=== PATIENT | male | born 1980 | race Caucasian/White ===

== ENCOUNTER 2023-10-14 17:36 | Observation (INO) ==
--- NOTE | 2023-10-14 18:01 | ED.PDOC ---
General ED Provider: Dr. LAURIE MALHOTRA MD Chief Complaint: Abdominal Pain Stated Complaint: Patient presents to ER from home accompanied by his complaining of acute right upper quadrant pain. Reports onset was yesterday and has been gradually worsening. States last meal was a cheesecake at approximately 4 PM today. Describes pain as intermittent between dull and sharp starting at right upper quadrant and then radiating down side. Denies any urinary symptoms. Denies any fever, chills, nausea, vomiting, diarrhea. No other complaints. Time Seen by Provider: 10/14/23 17:51 Mode of Arrival: Walk-In Information Source: Patient Exam Limitations: No limitations Nursing and Triage Documentation Reviewed and Agree: Yes What is Opioid Naive?: *Opioid Naive implies the patient is not already taking opioids or not chronically receiving opioids on a daily basis. *PRN dosing is not "usually" associated with tolerance. *Patients are at higher risk of over-sedation and aspiration. What is Opioid Tolerant?: *Opioid Tolerance implies less than the expected response to an opioid. *Acquired tolerance is defined by the patient taking 60mg of oral morphine daily (or equianalgesic dose of another opioid) for 1 week or more. *Often associated with chronic pain. *May take more than usual dose to achieve desired pain control. Review of Systems Review Of Systems Constitutional: Reports No symptoms All Other Systems: Reviewed and Negative (Except for those listed in the HPI.) FOR[facility]LY [facility] Medical History (Updated 10/14/23 @ 23:25 by KATHLEEN SHORE RN) No known health problems Z78.9 - Other specified health status (ICD-10) Family History Other No known health problems Social History (Updated 10/14/23 @ 23:29 by KATHLEEN SHORE RN) Smoking and tobacco status: Never smoker Alcohol intake: never Substance use type: does not use Special chelo needs: No Adopted: No Caregiver/support person: No Foster care: No Household members: spouse Housing: house Marital status: M Lives independently: Yes Daycare: no daycare Highest education level completed: high school graduate Financial difficulty paying for basics: not very hard intermediate: No Current occupational status: employed Current gender identity: male Seatbelt use: always Current diet type/program: regular Surgical History (Updated 10/14/23 @ 23:25 by KATHLEEN SHORE RN) No history of previous surgery Physical Exam Physical Exam Appearance: Reports Ill-appearing, No pain distress and Well-nourished Ill-appearing: Mild Pain Distress: Mild Eyes: Reports LOYDA and EOMI ENT: Reports Ears normal, Nose normal and Oropharynx normal Neck: Supple Respiratory: Reports Airway patent, Breath sounds clear, Breath sounds equal and Respirations nonlabored Cardiovascular: Reports RRR, Pulses normal, No rub and No murmur GI/: Reports Soft, No masses, Bowel sounds normal, No Organomegaly and Tender (Tenderness to superficial palpation of RUQ. +Crow's. No guarding or rebound tenderness.) Musculoskeletal: Reports Normal strength and ROM intact Skin: Reports Warm, Dry and Normal color Neurological: Reports Sensation intact, Motor intact, Alert and Oriented Psychiatric: Reports Affect appropriate and Mood appropriate Interpretation EKG Interpretation EKG Interpretation By: ED Physician Time of EKG #1: 18:22 Rate: Tachy Rhythm: Sinus Ectopy: None [place]: NL ST Segment: Normal Interpretation: Sinus tachycardia. Course Course 10/14/23 18:00 10/14/23 18:00 Orders, Labs, Meds: Lab Review 10/14/23 10/14/23 10/14/23 18:00 19:40 20:18 WBC 14.45 H RBC 5.79 Hgb 16.7 Hct 48.5 MCV 83.8 MCH 28.8 MCHC 34.4 RDW Coeff of Romana 12.9 Plt Count 293 Immature Gran % (Auto) 0.3 Neut % (Auto) 72.2 Lymph % (Auto) 18.0 Price % (Auto) 8.9 Eos % (Auto) 0.3 Baso % (Auto) 0.3 Neut # (Auto) 10.4 H Lymph # (Auto) 2.6 Price # (Auto) 1.3 Eos # (Auto) 0.0 Baso # (Auto) 0.0 Immature Gran # (Auto) 0.1 Sodium 137.8 Potassium 3.83 Chloride 103.9 Carbon Dioxide 24.6 Anion Gap 13.13 BUN 14.5 Creatinine 1.05 Estimated GFR (MDRD) 77.00 BUN/Creatinine Ratio 13.80 Glucose 141.1 H Lactic Acid 1.74 Calcium 9.47 Total Bilirubin 0.87 AST 46.1 ALT 59.6 H Alkaline Phosphatase 86.4 Troponin I < 0.012 Total Protein 8.00 Albumin 4.86 Globulin 3.14 Albumin/Globulin Ratio 1.54 Triglycerides Cholesterol LDL Cholesterol, Calc VLDL Cholesterol HDL Cholesterol Cholesterol/HDL Ratio Lipase 808.2 H SARS CoV-2 RNA Rapid YOANDY Negative 10/14/23 20:45 WBC RBC Hgb Hct MCV MCH MCHC RDW Coeff of Romana Plt Count Immature Gran % (Auto) Neut % (Auto) Lymph % (Auto) Price % (Auto) Eos % (Auto) Baso % (Auto) Neut # (Auto) Lymph # (Auto) Price # (Auto) Eos # (Auto) Baso # (Auto) Immature Gran # (Auto) Sodium Potassium Chloride Carbon Dioxide Anion Gap BUN Creatinine Estimated GFR (MDRD) BUN/Creatinine Ratio Glucose Lactic Acid Calcium Total Bilirubin AST ALT Alkaline Phosphatase Troponin I Total Protein Albumin Globulin Albumin/Globulin Ratio Triglycerides 176.4 H Cholesterol 224.3 H LDL Cholesterol, Calc 145 VLDL Cholesterol 35 H HDL Cholesterol 43.7 Cholesterol/HDL Ratio 5.1 Lipase SARS CoV-2 RNA Rapid YOANDY Orders Category Date Time Status ADMIT OBSERVATION [PLACE PATIENT OBSERVATION] .TO ADMISSION 10/14/23 20:45 Active MEDSURG (MONITORED BED) EKG-(ED ONLY) Stat CARDIO 10/14/23 18:02 Completed ACTIVITY .Up ad Bonnie CARE 10/14/23 20:40 Active INTAKE & OUTPUT Q8HR CARE 10/14/23 20:40 Active NPO REMINDER: IMAGING ONCE CARE 10/14/23 18:19 Completed NPO REMINDER: IMAGING ONCE CARE 10/14/23 20:41 Active NPO REMINDER: LAB TEST ONCE CARE 10/14/23 20:41 Active PULSE OX [CONTINUOUS PULSE OX (NURSING)] PULSEOX CARE 10/14/23 17:51 Active TELEMETRY MONITORING TELE CARE 10/14/23 20:45 Active VITAL SIGNS Q4HR CARE 10/14/23 20:40 Active NOTHING BY MOUTH DIETARY 10/15/23 Breakfast Ordered Assembly Riveter [ED VENDING SUPERVISOR APPLIED] .ONCE EMERGENCY 10/14/23 17:51 Active BLOOD CULTURE (ED ONLY) Stat LAB 10/14/23 10:42 Received CBC W/ AUTO DIFF DAILY@0600 LAB 10/15/23 06:00 Ordered CBC W/ AUTO DIFF DAILY@0600 LAB 10/16/23 06:00 Ordered CBC W/ AUTO DIFF Stat LAB 10/14/23 18:00 Completed CMP [COMPREHENSIVE METABOLIC PANEL] Stat LAB 10/14/23 18:00 Completed COMPREHENSIVE METABOLIC PANEL DAILY@0600 LAB 10/15/23 06:00 Ordered COMPREHENSIVE METABOLIC PANEL DAILY@0600 LAB 10/16/23 06:00 Ordered LACTIC ACID Stat LAB 10/14/23 18:00 Completed LIPASE DAILY@0600 LAB 10/15/23 06:00 Ordered LIPASE DAILY@0600 LAB 10/16/23 06:00 Ordered LIPASE Stat LAB 10/14/23 19:40 Completed LIPID PANEL Stat LAB 10/14/23 20:45 Completed SARS COV-2 RNA RAPID YOANDY Stat LAB 10/14/23 20:18 Completed TROPONIN I Stat LAB 10/14/23 18:00 Completed URINALYSIS C & S IF INDICATED Stat LAB 10/14/23 22:00 Completed Acetaminophen Meds 10/14/23 17:51 Discontinued 1,000 mg in 100 ml IV ONCE Acetaminophen Meds 10/14/23 20:40 Active 1,000 mg in 100 ml IV Q6HR Morphine Sulfate [Morphine 2 mg/ml Syringe] Meds 10/14/23 20:40 Active 2 mg IVP Q4HR PRN Ondansetron HCl/Pf [Zofran 4 mg/2 ml] Meds 10/14/23 20:40 Active 4 mg IVP Q6H PRN Ringers Lactated Solution [Lactated Ringers] 1,000 ml Meds 10/14/23 21:00 Active IV 250 mls/hr Sodium Chloride 0.9% [Sodium Chloride] 1,000 ml Meds 10/14/23 17:51 Discontinued IV BOLUS Sodium Chloride 0.9% [Sodium Chloride] 1,000 ml Meds 10/14/23 20:11 Discontinued IV BOLUS CHEST, 1V AP ONLY Stat RADS 10/14/23 18:[address] ABDOMEN/PELVIS W CONTRAST Stat RADS 10/14/23 18:19 Completed US ABDOMEN RT UPPER QUAD [U/S ABDOMEN RT UPPER QUAD] RADS 10/15/23 06:00 Ordered Stat Medications Generic Name Dose Route Start Last Admin Trade Name Freq PRN Reason Stop Dose Admin Acetaminophen 1,000 mg in 100 mls @ 400 mls/hr 10/14/23 20:40 Acetaminophen IV Q6HR PRN Pain Lactated Ringer's 1,000 mls @ 250 mls/hr 10/14/23 21:00 10/14/23 22:35 Lactated Ringers IV 250 mls/hr .Q4H VICTOR HUGO Administration Morphine Sulfate 2 mg 10/14/23 20:40 10/14/23 23:21 Morphine Sulfate 2 Mg/Ml Syringe IVP 2 mg Q4HR PRN Administration MODERATE PAIN Ondansetron HCl 4 mg 10/14/23 20:40 Ondansetron Hcl/Pf 4 Mg/2 Ml Sdv IVP Q6H PRN Nausea / Vomiting Discontinued Medications Generic Name Dose Route Start Last Admin Trade Name Freq PRN Reason Stop Dose Admin Sodium Chloride 1,000 mls @ 1,000 mls/hr 10/14/23 17:51 10/14/23 22:13 Sodium Chloride IV 10/14/23 18:50 Infused BOLUS STA Infusion Acetaminophen 1,000 mg in 100 mls @ 400 mls/hr 10/14/23 17:51 10/14/23 18:14 Acetaminophen IV 10/14/23 18:05 400 mls/hr ONCE STA Administration Sodium Chloride 1,000 mls @ 1,000 mls/hr 10/14/23 20:11 10/14/23 22:26 Sodium Chloride IV 10/14/23 21:10 Infused [place] [address] Diagnostic Imaging Diagnostic Imaging Report : [id number] Signed Patient: ANJELICA VAZQUEZ Acct:[id number] Medical Record: [id number] : 1980 Loc: ED Room/Bed: Age/Sex: 42 / M ADM Status: REG ER Date of Service: 10/14/23 Ordering Physician: LAURIE MALHOTRA MD Procedure(s): CHEST, 1V AP ONLY Report Number(s): [id number] Accession Number(s): [id number] cc: LAURIE MALHOTRA MD EXAM: CHEST RADIOGRAPH TECHNIQUE: Single frontal chest radiograph. HISTORY: Right-sided pain COMPARISON: 10/15/2022 FINDINGS: Lungs show no consolidation, pleural effusion or pneumothorax. The left costophrenic angle - show a small nodular opacity which is not appreciated previously. Cardiomediastinal silhouette and pulmonary vessels are within normal limits. Upper abdomen is unremarkable. No acute bony abnormality IMPRESSION: 1. No acute cardiopulmonary disease. 2. A faint nodular opacity seen in the left costophrenic angle region of the lung. Not appreciated previously. Suggest follow-up non-emergent CT scan of chest for further evaluation. Dictated By: POOJA LARA MD Signed By: POOJA LARA MD Dictated Date/Time: 10/14/231824 Transcribed Date/Time: 10/14/231824 Signed Date/Time: 10/14/23 [address] [place] [address] Report : [id number] Signed Patient: ANJELICA VAZQUEZ Acct:[id number] Medical Record: [id number] : 1980 Loc: ED Room/Bed: Age/Sex: 42 / M ADM Status: REG ER Date of Service: 10/14/23 Ordering Physician: LAURIE MALHOTRA MD Procedure(s): CT ABDOMEN/PELVIS W CONTRAST Report Number(s): [id number] Accession Number(s): [id number] cc: LAURIE MALHOTRA MD EXAM: CT OF THE ABDOMEN AND PELVIS WITH CONTRAST History: Right upper quadrant pain Technique: [address] of the abdomen and pelvis following intravenous contrast FINDINGS: The lung bases are clear. No significant liver abnormality. Normal spleen and adrenal glands. Annular pancreas configuration. The stomach and hiatus are unremarkable.The gallbladder appears normal. Kidneys and proximal collecting system are unremarkable. The appendix is normal. Bowel loops demonstrate normal caliber. Trace fluid and stranding in the anterior pararenal space. Vascular structures appear normal. Pelvic genitourinary structures appear normal. Pelvic bowel loops are unremarkable. No inflammatory change in the pelvic fat. No acute abnormality of the abdominal or pelvic skeleton. Impression: 1. Mild inflammatory stranding and retroperitoneal fluid on the right. Suspect origin from the pancreatic head. 2. 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 No evidence of duodenal obstruction. 3. The gallbladder and pericholecystic fat appear normal by CT. All CT scans are performed using dose optimization techniques as appropriate to the performed exam and include at least one of the following: Automated exposure control, adjustment of the mA and/or kV according to size, and the use of iterative reconstruction technique. Dictated By: QUENTIN GOLD Signed By: QUENTIN GOLD Dictated Date/Time: 10/14/231923 Transcribed Date/Time: 10/14/231923 Signed Date/Time: 10/14/231942 Vital Signs: Temp Pulse Resp BP Pulse Ox 10/14/23 17:47 97 F L 115 H 16 128/93 H 96 20:36 - Spoke with on-call hospitalist (L[facility]) regarding patient status and current workup and management for pancreatitis. WBC 14.45H, Lipase 808H. CT a/p remarkable for mild inflammatory stranding and retroperitoneal fluid on right; suspected pancreatic source. Patient with mild improvement of right upper quadrant pain after receiving 1L NS bolus x2, IV acetaminophen. Agreed to obs admission for further workup-mgmt. Discharge Plan Discharge Patient Disposition: PLACED OBSERVATION Discharge Problem: Pancreatitis, acute Did you review [place] [employer] for ALL controlled substances?: Not Applicable ED Provider: LAURIE MALHOTRA Condition: Good
[2023-10-14 18:05] LABS: BASOPHILS % (AUTO) 0.3 % (0.0-3.0); EOSINOPHILS % (AUTO) 0.3 % (0.0-7.0); HEMATOCRIT 48.5 % (42.0-52.0); HEMOGLOBIN 16.7 g/dl (14.0-18.0); IMMATURE GRANULOCYTE # (AUTO) 0.1 (0.0-1.0); IMMATURE GRANULOCYTE % (AUTO) 0.3 % (0.0-5.0); LYMPHOCYTES # (AUTO) 2.6 K/uL (0.60-3.4); MEAN CORPUSCULAR HEMOGLOBIN 28.8 pg (27.0-31.0); MEAN CORPUSCULAR HGB CONC 34.4 (31.8-35.4); MEAN CORPUSCULAR VOLUME 83.8 fl (80.0-94.0); MONOCYTES # (AUTO) 1.3 K/uL (0.4-2.0); MONOCYTES % (AUTO) 8.9 (0-10); NEUTROPHILS # (AUTO) 10.4 K/ul (2.0-6.9); NEUTROPHILS % (AUTO) 72.2 % (42.2-75.2); PLATELET COUNT 293 10^3/uL (140-440); RDW COEFFICIENT OF VARIATION 12.9 % (11.6-14.8); RED BLOOD COUNT 5.79 10^6/ul (4.70-6.10); WHITE BLOOD COUNT 14.45 K/ul (4.2-10.2)
[2023-10-14] MEDS: SODIUM CHLORIDE 1,000 ML IV STA ×2 (18:14→20:20)
[2023-10-14] MEDS: ACETAMINOPHEN 1,000 MG/100 ML BAG IV STA (18:14)
[2023-10-14 18:21] LABS: ALANINE AMINOTRANSFERASE 59.6 U/L (0-50); ALBUMIN 4.86 g/dL (3.5-5.0); ALKALINE PHOSPHATASE 86.4 U/L (38-126); ASPARTATE AMINO TRANSFERASE 46.1 U/L (17-59); BILIRUBIN,TOTAL 0.87 mg/dL (0.2-1.3); BLOOD UREA NITROGEN 14.5 mg/dL (9-20); CALCIUM 9.47 mg/dL (8.4-10.2); CARBON DIOXIDE 24.6 mmol/L (22-30.0); CHLORIDE 103.9 mmol/L (98-107); CREATININE 1.05 mg/dL (0.60-1.10); GLUCOSE 141.1 mg/dL (74-106); POTASSIUM 3.83 mmol/L (3.5-5.1); SODIUM 137.8 mmol/L (134.5-145)
--- NOTE | 2023-10-14 18:31 | DI ---
EXAM: CHEST RADIOGRAPH TECHNIQUE: Single frontal chest radiograph. HISTORY: Right-sided pain COMPARISON: 10/15/2022 FINDINGS: Lungs show no consolidation, pleural effusion or pneumothorax. The left costophrenic angle - show a small nodular opacity which is not appreciated previously. Cardiomediastinal silhouette and pulmona ry vessels are within normal limits. Upper abdomen is unremarkable. No acute bony abnormality IMPRESSION: 1. No acute cardiopulmonary disease. 2. A faint nodular opacity seen in the left costophrenic angle region of the lung. Not appreciated previously. Suggest follow-up non-emergent CT scan of chest for further evaluation.
--- NOTE | 2023-10-14 19:43 | CT ---
EXAM: CT OF THE ABDOMEN AND PELVIS WITH CONTRAST History: Right upper quadrant pain Technique: [address] of the abdomen and pelvis following intravenous contrast FINDINGS: The lung bases are clear. No significant liver abnormality. Normal spleen and adrenal gl ands. Annular pancreas configuration. The stomach and hiatus are unremarkable.The gallbladder appe ars normal. Kidneys and proximal collecting system are unremarkable. The appendix is normal. Bowel loops demonstrate normal caliber. Trace fluid and stranding in the anterior pararenal space. Vascu lar structures appear normal. Pelvic genitourinary structures appear normal. Pelvic bowel loops are unremarkable. No inflammatory change in the pelvic fat. No acute abnormality of the abdominal or pelvic skeleton. Impression: 1. Mild inflammatory stranding and retroperitoneal fluid on the right. Suspect origin from the bello creatic head. 2. 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 No evidence of duodenal obstruction. 3. The gallbladder and pericholecystic fat appear normal by CT. All CT scans are performed using dose optimization techniques as appropriate to the performed exam an d include at least one of the following: Automated exposure control, adjustment of the mA and/or kV according t o size, and the use of iterative reconstruction technique.
[2023-10-14 20:39] LABS: SARS COV-2 RNA RAPID NAAT NEGATIVE (NEGATIVE)
[2023-10-14] MEDS ORDERED: ZOFRAN 4 MG/2 ML IVP PRN (20:40)
[2023-10-14] MEDS ORDERED: ACETAMINOPHEN 1,000 MG/100 ML BAG IV PRN (20:40)
[2023-10-14 20:58] LABS: CHOLESTEROL 224.3 mg/dL (0-200); HDL CHOLESTEROL 43.7 mg/dL (35-60); TRIGLYCERIDES 176.4 mg/dL (0-150)
[2023-10-14 22:05] LABS: BILIRUBIN,URINE Negative (NEGATIVE); CLARITY,URINE Clear (CLEAR); COLOR,URINE Yellow (YELLOW); GLUCOSE, URINE (UA) Negative (NEGATIVE); KETONES,URINE Negative (NEGATIVE); LEUKOCYTE ESTERASE ,URINE Negative (NEGATIVE); NITRITE,URINE Negative (NEGATIVE); PH,URINE 7.5 (5-9); PROTEIN,URINE Negative (NEGATIVE); URINE, BLOOD Negative (NEGATIVE); UROBILINOGEN,URINE 0.2 (0.2)
[2023-10-14] MEDS: LACTATED RINGERS 1,000 ML IV SCH (22:35)
[2023-10-14 23:21] VITALS: BMI 32.1
[2023-10-14] MEDS: MORPHINE 2 MG/ML SYRINGE IVP PRN (23:21)
[2023-10-15 05:59] LABS: BASOPHILS % (AUTO) 0.2 % (0.0-3.0); EOSINOPHILS # (AUTO) 0.1 K/ul (0.0-0.7); EOSINOPHILS % (AUTO) 0.4 % (0.0-7.0); HEMATOCRIT 42.8 % (42.0-52.0); HEMOGLOBIN 14.5 g/dl (14.0-18.0); IMMATURE GRANULOCYTE # (AUTO) 0.1 (0.0-1.0); IMMATURE GRANULOCYTE % (AUTO) 0.3 % (0.0-5.0); LYMPHOCYTES # (AUTO) 2.2 K/uL (0.60-3.4); LYMPHOCYTES % (AUTO) 15.3 (10.0-50.0); MEAN CORPUSCULAR HEMOGLOBIN 28.5 pg (27.0-31.0); MEAN CORPUSCULAR HGB CONC 33.9 (31.8-35.4); MEAN CORPUSCULAR VOLUME 84.3 fl (80.0-94.0); MONOCYTES # (AUTO) 1.4 K/uL (0.4-2.0); MONOCYTES % (AUTO) 9.5 (0-10); NEUTROPHILS # (AUTO) 10.7 K/ul (2.0-6.9); NEUTROPHILS % (AUTO) 74.3 % (42.2-75.2); PLATELET COUNT 250 10^3/uL (140-440); RDW COEFFICIENT OF VARIATION 12.7 % (11.6-14.8); RED BLOOD COUNT 5.08 10^6/ul (4.70-6.10); WHITE BLOOD COUNT 14.38 K/ul (4.2-10.2)
[2023-10-15 06:08] LABS: ALBUMIN 4.23 g/dL (3.5-5.0); ALKALINE PHOSPHATASE 77.2 U/L (38-126); ASPARTATE AMINO TRANSFERASE 40.1 U/L (17-59); BILIRUBIN,TOTAL 1.06 mg/dL (0.2-1.3); BLOOD UREA NITROGEN 9.3 mg/dL (9-20); CALCIUM 8.58 mg/dL (8.4-10.2); CARBON DIOXIDE 26.2 mmol/L (22-30.0); CHLORIDE 104.2 mmol/L (98-107); CREATININE 0.79 mg/dL (0.60-1.10); GLUCOSE 130.3 mg/dL (74-106); LIPASE 563.6 U/L (23-300); POTASSIUM 4.24 mmol/L (3.5-5.1); SODIUM 136.2 mmol/L (134.5-145); TOTAL PROTEIN 7.03 g/dL (6.3-8.2)
--- NOTE | 2023-10-15 08:11 | US ---
EXAM: ULTRASOUND OF THE RIGHT UPPER QUADRANT (LIMITED ABDOMEN) HISTORY: Right upper quadrant abdominal pain. TECHNIQUE: Sonography of the right upper quadrant of the abdomen was performed. Color Doppler imagin g and spectral Doppler imaging of the portal vein was also performed. Images were obtained and store d in a permanent archive. COMPARISON: None. FINDINGS: Pancreas: Normal appearance. Liver: The liver measures 14.2 cm. No focal hepatic lesion. Main portal vein: Normal hepatopetal flow. Gallbladder: No cholelithiasis. No gallbladder wall thickening. Negative sonographic Crow's sign. Common bile duct measures mm. Aorta: Visualized portion without aneurysmal dilatation. IVC: Patent on color doppler. No abnormality on limited munguia scale image. Other: No ascites. Evaluation of the right kidney reveals no stones or hydronephrosis. IMPRESSION: 1. Normal right upper quadrant abdomen ultrasound.
[2023-10-15] MEDS ORDERED: TYLENOL #3 TAB PO ONE (10:18)
[2023-10-15] MEDS ORDERED: TYLENOL PO ONE (10:26)
[2023-10-15] MEDS: TYLENOL PO ONE (10:47)
--- NOTE | 2023-10-15 11:09 | PCM.SS ---
Provider Provider: KIKI SONG PA-C, [facility] Admission Date Admission Date: 10/14/23 Discharge Date Discharge Date: 10/15/23 Chief Complaint Reason For Visit: PANCREATITIS History of Present Illness History of Present Illness: Admitted 10/14/23 21:10, this 42 year old /WHITE/M with no significant pmhx presented to ER with RUQ abd pain since Wednesday of this week. He denies drinking, smoking, new medications. He can't associate it with fatty meals. He was noted in ER to have lipase >800, CT a/p showed signs of acute pancreatitis. It also mentioned possibility of annular pancreas variant. Pt states he does have GERD sometimes for which he takes otc prilosec, but otherwise denies symptoms. He was admitted to med surg for acute pancreatitis. The following day patient's lipase improved to 500. US RUQ negative. Pt only received IV morphine one time. He was hoping to eat. He was able to tolerate a d iet without difficulty. No n/v/d. Pain much improved. He felt comfortable with discharge to home. Discussed if symptoms persist, may need a surgical consultation to discuss the CT finding of possible annular pancreas variant. Also discussed a HIDA scan outpatient could be worth considering. [facility] Medical History No known health problems Z78.9 - Other specified health status (ICD-10) Surgical History No history of previous surgery Family History Other No known health problems Social History Smoking and tobacco status: Never smoker Alcohol intake: never Substance use type: does not use Special chelo needs: No Adopted: No Caregiver/support person: No Foster care: No Household members: spouse Housing: house Marital status: M Lives independently: Yes Daycare: no daycare Highest education level completed: high school graduate Financial difficulty paying for basics: not very hard longterm: No Current occupational status: employed Current gender identity: male Seatbelt use: always Current diet type/program: regular Medications Mecications: Medications at Discharge (Home Meds & RX) 1 [No Reported Medications] 10/14/23 Allergies Allergies Allergy/AdvReac Type Severity Reaction Status Date / Time No Known Allergies Allergy Verified 10/14/23 17:50 Review of Systems Constitutional: Denies Fever or Weakness Head: Reports Normocephalic and Atraumatic Cardiovascular: Denies Chest pain or Edema Respiratory: Denies Cough or Shortness of air Gastrointestinal: Reports Nausea and Abdominal pain; Denies Vomiting or Melena Genitourinary: Denies Dysuria Neurological: Denies Headache, Dizziness, Syncope or Weakness Physical Examination Appearance: Positive Well-appearing, Well-nourished, No Apparent Distress and Alert and Oriented x3 Head: Positive Normocephalic and Atraumatic Neck: Positive Supple and Trachea Midline Respiratory: Positive Breath Sounds Clear, Bilaterally and Respirations Nonlabored GI/: Positive Soft, Nontender, Bowel sounds normal and No Distention Extremities: Negative Edema Neurological: Positive Alert and Oriented Psychiatric: Positive Normal Judgement, Normal Insight, Affect Appropriate and Mood Appropriate Vital Signs (Last 4 Hours) Vital Signs Last 4 Hours: Vital Signs: Last 4 Hours 10/15/23 08:00 10/15/23 09:00 10/15/23 10:00 Temperature 98.2 F Temperature Source Temporal Artery Scan Pulse Rate 88 Respiratory Rate 16 Blood Pressure 132/95 H Blood Pressure Mean 107 Blood Pressure Location Left Arm Blood Pressure Position Sitting O2 Sat by Pulse Oximetry 96 Oxygen Delivery Method Room Air Room Air Room Air 10/15/23 10:00 Temperature Temperature Source Pulse Rate Respiratory Rate Blood Pressure Blood Pressure Mean Blood Pressure Location Blood Pressure Position O2 Sat by Pulse Oximetry Oxygen Delivery Method Room Air Labs This Visit Labs This Visit: Labs This Visit 10/14/23 10/14/23 10/14/23 18:00 19:40 20:18 WBC 14.45 H RBC 5.79 Hgb 16.7 Hct 48.5 MCV 83.8 MCH 28.8 MCHC 34.4 RDW Coeff of Romana 12.9 Plt Count 293 Immature Gran % (Auto) 0.3 Neut % (Auto) 72.2 Lymph % (Auto) 18.0 Tate % (Auto) 8.9 Eos % (Auto) 0.3 Baso % (Auto) 0.3 Neut # (Auto) 10.4 H Lymph # (Auto) 2.6 Tate # (Auto) 1.3 Eos # (Auto) 0.0 Baso # (Auto) 0.0 Immature Gran # (Auto) 0.1 Sodium 137.8 Potassium 3.83 Chloride 103.9 Carbon Dioxide 24.6 Anion Gap 13.13 BUN 14.5 Creatinine 1.05 Estimated GFR (MDRD) 77.00 BUN/Creatinine Ratio 13.80 Glucose 141.1 H Hemoglobin A1c Lactic Acid 1.74 Calcium 9.47 Total Bilirubin 0.87 AST 46.1 ALT 59.6 H Alkaline Phosphatase 86.4 Troponin I < 0.012 Total Protein 8.00 Albumin 4.86 Globulin 3.14 Albumin/Globulin Ratio 1.54 Triglycerides Cholesterol LDL Cholesterol, Calc VLDL Cholesterol HDL Cholesterol Cholesterol/HDL Ratio Lipase 808.2 H Urine Color Urine Clarity Urine pH Ur Specific [place] Urine Protein Urine Glucose (UA) Urine Ketones Urine Blood Urine Nitrite Urine Bilirubin Urine Urobilinogen Ur Leukocyte Esterase SARS CoV-2 RNA Rapid YOANDY Negative 10/14/23 10/14/23 10/15/23 20:45 22:00 05:47 WBC 14.38 H RBC 5.08 Hgb 14.5 Hct 42.8 MCV 84.3 MCH 28.5 MCHC 33.9 RDW Coeff of Romana 12.7 Plt Count 250 Immature Gran % (Auto) 0.3 Neut % (Auto) 74.3 Lymph % (Auto) 15.3 Tate % (Auto) 9.5 Eos % (Auto) 0.4 Baso % (Auto) 0.2 Neut # (Auto) 10.7 H Lymph # (Auto) 2.2 Tate # (Auto) 1.4 Eos # (Auto) 0.1 Baso # (Auto) 0.0 Immature Gran # (Auto) 0.1 Sodium 136.2 Potassium 4.24 Chloride 104.2 Carbon Dioxide 26.2 Anion Gap 10.04 BUN 9.3 Creatinine 0.79 Estimated GFR (MDRD) 107.00 BUN/Creatinine Ratio 11.77 Glucose 130.3 H Hemoglobin A1c 5.44 Lactic Acid Calcium 8.58 Total Bilirubin 1.06 AST 40.1 ALT 51.0 H Alkaline Phosphatase 77.2 Troponin I Total Protein 7.03 Albumin 4.23 Globulin 2.80 Albumin/Globulin Ratio 1.51 Triglycerides 176.4 H Cholesterol 224.3 H LDL Cholesterol, Calc 145 VLDL Cholesterol 35 H HDL Cholesterol 43.7 Cholesterol/HDL Ratio 5.1 Lipase 563.6 H Urine Color Yellow Urine Clarity Clear Urine pH 7.5 Ur Specific [place] 1.015 Urine Protein Negative Urine Glucose (UA) Negative Urine Ketones Negative Urine Blood Negative Urine Nitrite Negative Urine Bilirubin Negative Urine Urobilinogen 0.2 Ur Leukocyte Esterase Negative SARS CoV-2 RNA Rapid YOANDY Imaging Imaging: EXAM: CT OF THE ABDOMEN AND PELVIS WITH CONTRAST History: Right upper quadrant pain Technique: [address] of the abdomen and pelvis following intravenous contrast FINDINGS: The lung bases are clear. No significant liver abnormality. Normal spleen and adrenal glands. Annular pancreas configuration. The stomach and hiatus are unremarkable.The gallbladder appears normal. Kidneys and proximal collecting system are unremarkable. The appendix is normal. Bowel loops demonstrate normal caliber. Trace fluid and stranding in the anterior pararenal space. Vascular structures appear normal. Pelvic genitourinary structures appear normal. Pelvic bowel loops are unremarkable. No inflammatory change in the pelvic fat. No acute abnormality of the abdominal or pelvic skeleton. Impression: 1. Mild inflammatory stranding and retroperitoneal fluid on the right. Suspect origin from the pancreatic head. 2. 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 No evidence of duodenal obstruction. 3. The gallbladder and pericholecystic fat appear normal by CT. EXAM: ULTRASOUND OF THE RIGHT UPPER QUADRANT (LIMITED ABDOMEN) HISTORY: Right upper quadrant abdominal pain. TECHNIQUE: Sonography of the right upper quadrant of the abdomen was performed. Color Doppler imaging and spectral Doppler imaging of the portal vein was also performed. Images were obtained and stored in a permanent archive. COMPARISON: None. FINDINGS: Pancreas: Normal appearance. Liver: The liver measures 14.2 cm. No focal hepatic lesion. Main portal vein: Normal hepatopetal flow. Gallbladder: No cholelithiasis. No gallbladder wall thickening. Negative sonographic Crow's sign. Common bile duct measures mm. Aorta: Visualized portion without aneurysmal dilatation. IVC: Patent on color doppler. No abnormality on limited munguia scale image. Other: No ascites. Evaluation of the right kidney reveals no stones or hydronephrosis. IMPRESSION: 1. Normal right upper quadrant abdomen ultrasound. Review Review Statement: I have independently reviewed and interpreted the labs/EKGs/imaging that were ordered by the ER provider. I have reviewed all outside records that are available currently in our EMR including imaging/notes/labs from previous visits. Plan Reccomendations/Plan: 1. Acute pancreatitis, unknown etiology - CT findings and lipase support pancreatitis. No new medications, denies alcohol use, a1c normal. CT showed possible annular pancreas variant. Surgical consultation outpatient could be warranted. Lipase improving. Pain resolving. Patient's lipase improved to 500. US RUQ negative. Pt only received IV morphine one time. He was hoping to eat. He was able to tolerate a diet without difficulty. No n/v/d. Pain much improved. He felt comfortable with discharge to home. Discussed if symptoms persist, may need a surgical consultation to discuss the CT finding of possible annular pancreas variant. Also discussed a HIDA scan outpatient could be worth considering. Discharge diagnoses: 1. Acute pancreatitis, unknown etiology - resolving Additional Planning: Case discussed with ED Physician, Dr. Cordero. DVT Prophylaxis: Ambulation Advanced Care Plannin minutes spent discussing advance care planning. Admit to: Obs Discussed Plan of Care with Dr. Awais Kumari. Review With Patient Reviewed with Patient and Family: Patient and family have been counseled on condition and care plan and have no immediate questions. I have personally discussed and reviewed the patient's visit/current labs/imaging/decision making with Dr. Awais Kumari, my supervising attending. Total number of minutes spent with patient [85] min. More than 50% of the time spent with this patient was devoted to counseling and coordination of care. Time of Admission:10/14/23 21:10 Time of Discharge: 10/15/23 1000 Discharge Plan Discharge Discharge Orders: Discharge Patient (ONCE); Ordered 10/15/23 Ordered By: KIKI SONG Activity Restrictions/Additional Instructions: DISCHARGE HOME TODAY ACTIVITY TOLERATED YOU MAY RETURN TO WORK DIET: Progress as tolerated FOLLOW UP AT THE CLINIC ON WEDNESDAY, October AT 0945. YOU SHOULD ARRIVE AT LEAST 15 MIN. EARLY. YOU SHOULD FIND A PRIMARY CARE PROVIDER TO FOLLOW UP WITH YOUR DIAGNOSED PANCREATITIS. YOUR B/P SHOULD BE FOLLOWED WELL. CONSIDER SURGICAL CONSULT IF SYMPTOMS PERSIST DUE TO QUESTIONABLE CT FINDING REGARDING ANNULAR PANCREAS Instructions: Pancreatitis (DC) Care Plan Goals: Problem: Alteration in Comfort/Pain Goal: Manage pain at a tolerable level Instructions: Monitor character, location and intensity Express expectations of pain relief Pain medication as ordered Position for maximal comfort Pain management prior to activities Patient Disposition: HOME SELF-CARE Prescriptions: No Action No Reported Medications Did you review [place] [employer]IVER for ALL controlled substances?: Not Applicable Discussed opioids are addictive and Narcan is available by prescription or from pharmacy.: No Condition: Good Referrals: MELLY SANDOVAL APRN,[facility] [NURSE PRACTITIONER] - 10/21/23 9:45 am
[2023-10-15 14:20] VITALS: BP 137/90; PULSE 85; RESP 18; TEMP 98.9
== END 2023-10-15 14:45 | disposition home or self-care (01) ==
LOC: MEDSURG B 17:36 → ED 17:36 → MEDSURG B 22:44
PROVIDERS: ADMIT Hospitalist; ATTEND Physician Assistant
DX: Z20.822 Contact with and (suspected) exposure to COVID-19; R91.8 Other nonspecific abnormal finding of lung field; R79.89 Other specified abnormal findings of blood chemistry; K85.90 Acute pancreatitis without necrosis or infection, unspecified